=== PATIENT | male | born 2000 | race Caucasian/White ===

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

== ENCOUNTER → 2020-02-16 | Outpatient (CLI) | payer BC ==
--- NOTE | 2020-02-16 19:07 | REP ---
HISTORY: Pain after trauma. Abnormal lucency is seen involving at least the first cuneiform possibly also involving the medial and lateral margins of the second cuneiform. IMPRESSION: Findings described above somewhat suspicious for fractures. Consider CT for further evaluation. Electronically Signed by Arnaldo Dykes DO 02/16/2020 07:31 P
== END ==
LOC: M WUC 18:01
PROVIDERS: ATTEND Physician Assistant
DX: S93.602A Unspecified sprain of left foot, initial encounter (principal); X58.XXXA Exposure to other specified factors, initial encounter; Y92.89 Other specified places as the place of occurrence of the external cause

== ENCOUNTER 2020-05-09 13:45 | Outpatient (RCR) | payer BC | END 2020-05-10 | LOC: M PT 13:45 | PROVIDERS: ATTEND Orthopaedic Surgery Hand Surgery | DX: S93.602A Unspecified sprain of left foot, initial encounter (principal) ==

== ENCOUNTER → 2020-10-31 | Outpatient (REF) | payer BC | LOC: M LAB REF 16:05 | PROVIDERS: ATTEND Physician Assistant Medical | DX: Z11.59 Encounter for screening for other viral diseases (principal) ==

== ENCOUNTER → 2021-06-29 | Outpatient (REF) | LOC: M LABSMTC 12:59 | PROVIDERS: ATTEND Pediatrics | DX: Z20.822 Contact with and (suspected) exposure to COVID-19 (principal) ==

== ENCOUNTER → 2021-12-02 | Outpatient (REF) | LOC: M EMP 09:43 | PROVIDERS: ATTEND Family Medicine | DX: Z20.822 Contact with and (suspected) exposure to COVID-19 (principal) ==

== ENCOUNTER → 2023-11-25 | Outpatient (REF) | LOC: M EMP 12:15 | PROVIDERS: ATTEND Family Medicine | DX: U07.1 COVID-19 (principal) ==